=== PATIENT | male | born 1970 | race African-American/Black ===

== ENCOUNTER 2017-12-22 07:43 | Emergency (ER) | payer OTHER ==
[~2017-12-22] VITALS: Ht 177.8 cm; Wt 121.1 kg
[~2017-12-22 07:43] MED LIST: ALDACTONE25 MG PO; AMOXICILLIN875 MG PO; GABAPENTIN 100100 MG PO; GLIPIZIDE 10 MG10 MG PO; LASIX 20 MG TAB20 MG PO; PRINIVIL20 MG
[2017-12-22] MEDS ORDERED: COREG25 MG PO (08:05)
[2017-12-22] MEDS ORDERED: HYDRALAZINE 2525 MG PO (08:05)
[2017-12-22] MEDS ORDERED: NORVASC10 MG PO (08:06)
[2017-12-22] MEDS ORDERED: KEFLEX500 M1 PO (08:36)
[2017-12-22 09:11] VITALS: BP 146/86
== END 2017-12-22 09:12 | disposition home or self-care (01) ==
LOC: ER 07:43
DX: E11.621 Type 2 diabetes mellitus with foot ulcer (principal)

== ENCOUNTER 2018-04-12 08:35 | Inpatient (IN) | payer OTHER ==
[~2018-04-12] VITALS: Ht 177.8 cm; Wt 118.0 kg
[2018-04-12] VITALS (30 sets, daily range): BP systolic 146–223; BP diastolic 69–119
--- NOTE | ~2018-04-12 | HC ---
[facility] [place] [address] [place] [address] CONSULTATION Name: MATTHEW NELSON Room #: 240-P [facility] IN M.R.#: [id number] Admission: 04/12/18 Attend Phys: Dante Wallace Discharge: Date of : 66 Report #: [id number] THIS REPORT FOR: //name// CC: Zunilda ODOM Physician staff REASON FOR CONSULTATION: End-stage renal disease. REASON FOR THE PRESENTATION: Swelling and shortness of breath. HISTORY OF PRESENT ILLNESS: A 48-year-old with past medical history of diabetes mellitus, hypertension, unfortunately noncompliance with medical care, uncontrolled diabetes mellitus with hypertension, evidence of diabetic retinopathy, who presented yesterday with shortness of breath. He was found to have pulmonary edema and fluid overload. Blood pressure was extremely elevated. This was 200/107. Laboratory values from yesterday revealed anemia with hyperkalemia, BUN of 108 and a creatinine of 10.2. He was treated accordingly for his hyperkalemia and was admitted to the Intensive Care Unit to be further evaluated. PAST MEDICAL HISTORY: 1. Diabetes mellitus. 2. Hypertension. 3. Noncompliance. 4. Diabetic retinopathy. MEDICATIONS: 1. Aldactone. 2. Glipizide. 3. Hydralazine. 4. Amlodipine. 5. Furosemide. ALLERGIES: ASPIRIN. FAMILY HISTORY: His mom was on dialysis. REVIEW OF SYSTEMS: GENERAL: No fever or chills. CARDIOVASCULAR: Significant for shortness of breath. PULMONARY: No cough or hemoptysis, but significant for dyspnea on exertion. GASTROINTESTINAL: No nausea or vomiting. GENITOURINARY: No frequency, no urgency. No change in bowel habits. MUSCULOSKELETAL: No back pain, no morning stiffness. SKIN: Significant for bilateral lower extremity edema. [facility] [address] [place] [address] CONSULTATION Name: MATTHEW NELSON Room #: 240-P [facility] IN ..#: [id number] Admission: 04/12/18 Attend Phys: Dante Wallace Discharge: Date of : 66 Report #: [id number] PHYSICAL EXAMINATION: VITAL SIGNS: Blood pressure is now 140/76. HEAD AND NECK: No jugular venous distention. CHEST: Decreased air entry bilaterally. CARDIOVASCULAR: No rub detected. Distant S1, S2. ABDOMEN: Soft, nontender. LOWER EXTREMITIES: +4 edema. LABORATORY VALUES: Reviewed. He is anemic with hemoglobin of 7.4. Potassium is 6.1. Phosphorus was 10. LFTs revealed an elevated AST and ALT. Renal ultrasound with no evidence of obstruction. Chest x-ray: Mild pulmonary venous congestion. ASSESSMENT, IMPRESSION AND PLAN: 1. End-stage renal disease. 2. Hypertensive urgency. 3. Noncompliance. 4. Hyperkalemia. 5. The patient's blood pressure seems to be under much better control. 6. Given the above-mentioned laboratory values, we will initiate the patient on hemodialysis. We will ask Radiology to place a dialysis catheter. 7. Anemia workup. 8. Initiate hyperphosphatemia treatment. 9. lock up worker to arrange outpatient hemodialysis. By: [id number] Timur Watters MD /nt
[~2018-04-12 08:35] MED LIST changes: -ALDACTONE25 MG PO; +COREG25 MG PO; -GLIPIZIDE 10 MG10 MG PO; +GLIPIZIDE ER5 MG PO; +HYDRALAZINE 2525 MG PO; +KEFLEX500 M1 PO; +NORVASC10 MG PO; +SPIRONOLACTONE25 M1 PO
[2018-04-12 09:11] LABS: ABSOLUTE NEUTROPHILS 7.7 thou/uL (1.4-8.2); HEMOGLOBIN 8.3 gm/dL (14.0-18.0); WBC 11.2 thou/uL (4.0-11.0)
[2018-04-12 09:12] LABS: BASOPHILS 0.9 % (0.0-2.0); EOSINOPHILS 3.8 % (0.0-3.0); HEMATOCRIT 25.4 % (42.0-52.0); MCH 30.4 pg (26.0-34.0); MCHC 32.5 g/dL (28.0-37.0); MCV 93.6 fL (80.0-100.0); MONOCYTES 11.3 % (1.0-8.0); PLATELET COUNT 213 thou/uL (150-400); RBC 2.72 mil/uL (4.50-6.00); RDW 15.1 % (10.5-14.5)
[2018-04-12 09:13] LABS: URINE CLARITY CLEAR; URINE COLOR YELLOW; URINE PROTEIN (DIPSTICK) 2+ (Negative); URINE SPECIFIC GRAVITY 1.025 (1.005-1.035)
[2018-04-12 09:14] LABS: URINE BILIRUBIN NEGATIVE (Negative); URINE BLOOD 2+ (Negative); URINE GLUCOSE-RANDOM* NEGATIVE (Negative); URINE KETONES NEGATIVE (Negative); URINE LEUKOCYTES-REFLEX NEGATIVE (Negative); URINE NITRITE-REFLEX NEGATIVE (Negative); URINE UROBILINOGEN 0.2 E.U./dl (0.2-1.0)
[2018-04-12 09:14] LABS: ANION GAP 18 mmol/L (7-16); BUN 109 mg/dL (7-18); CALCIUM 6.7 mg/dL (8.5-10.1); CHLORIDE 108 mmol/L (98-107); CO2 14 mmol/L (21-32); CREATININE 10.1 mg/dL (0.7-1.3); GLUCOSE 80 mg/dL (74-106); SODIUM 140 mmol/L (136-145)
[2018-04-12 09:19] LABS: POTASSIUM 6.6 mmol/L (3.5-5.1)
[2018-04-12 09:22] LABS: SGOT 144 U/L (15-37); SGPT 133 U/L (30-65); TOTAL BILIRUBIN 0.6 mg/dL (<0.1-1.0); TOTAL PROTEIN 8.6 g/dL (6.4-8.2); TROPONIN-I <0.06 ng/mL (<0.06)
[2018-04-12 09:37] LABS: BACTERIA-REFLEX 1-9 Few /HPF (None Seen); CASTS None Seen /LPF (None Seen); CRYSTALS None Seen /LPF (None Seen); SQUAMOUS None Seen /LPF (0-3); URINE RBC None Seen /HPF (0-2); URINE WBC-REFLEX 0-5 Rare /HPF (0-5)
[2018-04-12 10:06] LABS: PROT/CREAT RATIO 3.9; URINE CREATININE-RANDOM* 63.4 mg/dL; URINE PROTEIN-RANDOM* > 250.0 mg/dL (<11.9)
[2018-04-12 10:54] LABS: CHOLESTEROL 101 mg/dL (<200); HDL CHOLESTEROL 39 mg/dL (>40); LDL CHOLESTEROL 47 mg/dL (<100); TC:HDL 2.6 Ratio (Not establshd); TRIGLYCERIDE 75 mg/dL (<150); VLDL 15 mg/dL (<40)
--- NOTE | 2018-04-12 12:03 | 2DMMODE ---
[facility] [place] [address] 2 D/M-MODE ECHOCARDIOGRAM Name: OMARMATTHEW JONAS Room #: 170-4 ADM IN M.R.#: [id number] Admission: 04/12/18 Attend Phys: Dante Isaac Discharge: Date of : 66 Date of Service: 04/12/18 1203 Report #: [id number] THIS REPORT FOR: //name// APPROVED REPORT Study performed: 04/12/2018 10:50:47 EXAM: Comprehensive 2D, Doppler, and color-flow Echocardiogram Patient Location: Echo lab Room #: ER Status: routine BSA: 2.39 HR: 59 bpm BP: 210/115 mmHg Rhythm: NSR Other Information Study Quality: Adequate Technically limited study due to body habitus. Indications Short of breath, CHF. Hx: CHF, HTN, DM. Echo Enhancing Agent Indication: Endocardial border delineation Agent(s) / Amount(s) Used: Optison 4 cc 2D Dimensions RVDd: 52.99 mm IVSd: 15.00 (7-11mm) LVOT Diam: 23.46 (18-24mm) LVDd: 59.22 mm PWd: 15.00 (7-11mm) Ascending Ao: 34.26 (22-36mm) LVDs: 43.78 (25-40mm) Aortic Root: 36.82 mm Volumes Left Atrial Volume (Systole) Single Plane 4CH: 91.86 mL Single Plane 2CH: 122.00 mL LA ESV Index: 47.00 mL/m2 Aortic Valve AoV Peak Ryley.: 1.71 m/s AO Peak Gr.: 11.70 mmHg LVOT Max P.54 mmHg LVOT Max V: 1.07 m/s TANISHA Vmax: 2.69 cm2 [facility] [place] [address] 2 D/M-MODE ECHOCARDIOGRAM Name: MATTHEW NELSON Room #: [address] [place] [address] IN M.R.#: [id number] Admission: 04/12/18 Attend Phys: Dante Isaac Discharge: Date of : 66 Date of Service: 04/12/18 1203 Report #: [id number] Mitral Valve E/A Ratio: 1.1 MV Decel. Time: 203.86 ms MV E Max Ryley.: 1.18 m/s MV A Ryley.: 1.03 m/s MV PHT: 59.12 ms IVRT: 92.27 ms Pulmonary Valve PV Peak Ryley.: 1.05 m/s PV Peak Gr.: 4.38 mmHg Pulmonary Vein P Vein S: 0.61 m/s P Vein D: 0.73 m/s P Vein S/D Ratio: 0.84 Tricuspid Valve TR Peak Ryley.: 3.15 m/s RAP Estimate: 10.00 mmHg TR Peak Gr.: 39.81 mmHg PA Pressure: 50.00 mmHg Left Ventricle Left ventricle is mildly dilated. Moderate concentric left ventricular hypertrophy. Left ventricular systolic function is normal. LVEF is 50-55%. Right Ventricle Right ventricle is dilated. Poor visualized. Difficult to assess function. Atria Left atrium is moderately dilated. Right atrium is moderately dilated. Aortic Valve Aortic valve is mildly thickened and calcified. with a focal density noted, clinical correlation suggested No aortic regurgitation is present. There is no aortic valvular stenosis. Mitral Valve The mitral valve is normal in structure. Trace mitral regurgitation. No evidence of mitral valve stenosis. Tricuspid Valve The tricuspid valve is normal in structure. Mild to moderate [facility] [address] [place] [address] 2 D/M-MODE ECHOCARDIOGRAM Name: MATTHEW NELSON Room #: 170-4 ADM IN M.R.#: [id number] Admission: 04/12/18 Attend Phys: Dante Isaac Discharge: Date of : 66 Date of Service: 04/12/18 1203 Report #: [id number] tricuspid regurgitation. Estimated PAP is 45-50mmHg. Pulmonic Valve The pulmonary valve is normal in structure. Mild pulmonic regurgitation. Great Vessels The aortic root is normal in size. The ascending aorta is normal in size. IVC is dilated and collapses <50% with inspiration. Pericardium There is no pericardial effusion. <Conclusion> Left ventricle is mildly dilated. LVEF is 50-55%. Right ventricle is dilated. Poor visualized. Difficult to assess function. Aortic valve is mildly thickened and calcified. with a focal density noted, clinical correlation suggested The mitral valve is normal in structure. Trace mitral regurgitation. The pulmonary valve is normal in structure. Mild pulmonic regurgitation. There is no pericardial effusion. <ELECTRONICALLY SIGNED> By: Santhosh Oconnor MD 04/12/18 1203 1203 02 Santhosh Oconnor MD /INF
[2018-04-12] MEDS ORDERED: RENO CAPS SOFTGE1 MG PO (13:06)
[2018-04-12] MEDS ORDERED: NAPROSYN500 MG PO (13:07)
--- NOTE | 2018-04-12 15:45 | EKG ---
[address] [employer] [place] [address] ELECTROCARDIOGRAM REPORT Name: MATTHEW NELSON Room #: 240-P ADM IN M.R.#: [id number] Admission: 04/12/18 Attend Phys: Dante Wallace Discharge: Date of : 66 Report #: [id number] THIS REPORT FOR: //name// [facility] ED Test Date: 2018-04-12 Test Time: 08:51:18 Pat Name: MATTHEW NELSON Department: Room: 240 Gender: M Measurement And Sensing Technician: : 1970 Requested By: Sami Reid Order Number: [id number] MD: Troy Solomon Measurements Intervals [place] Rate: 66 P: 52 MA: 181 QRS: 29 QRSD: 99 T: 92 QT: 479 QTc: 502 Interpretive Statements Sinus rhythm Low voltage, extremity leads Consider anterior infarct Nonspecific T abnormalities, lateral leads No previous ECG available for comparison Electronically Signed On 04-12-2018 15:45:08 UTILIZATION SUPERVISOR by Troy Solomon [email or web address] <ELECTRONICALLY SIGNED> By: Troy Solomon MD 04/12/18 1545 D: 01/850 0 Troy Solomon MD /KARINA
[2018-04-12 16:19] LABS: CALCIUM 6.9 mg/dL (8.5-10.1); CREATININE 10.1 mg/dL (0.7-1.3)
[2018-04-12 16:21] LABS: POTASSIUM 6.2 mmol/L (3.5-5.1)
--- NOTE | 2018-04-12 20:22 | NUR ---
PATIENT ADMITTED TO THE ICU. HE WAS ALERT AND ORIENTED. HE DENIED PAIN. TREATMENT WAS RECEIVED IN THE ED FOR HYPERKALEMIA. LABS WERE REDRAWN AND DR. AVILES CALLED TO [facility]. THIS WAS PROVIDED. ASSESSMENTS AND VITAL SIGNS DOCUMENTED. PLAN OF CARE IS TO CONTINUE TO MONITOR PATIENT STATUS, VITAL SIGNS, AND LABS. HE HAS HAD URINE OUTPUT DOCUMENTED. REPORT GIVEN TO FIREARMS EXPERT RN FOR CONTINUATION OF CARE.
[2018-04-12 22:09] LABS: GLYCOHEMOGLOBIN (HGB A1C) 5.6 % (4.8-5.6)
[2018-04-12 23:10] LABS: HAV IgM AB (ANTI-HAV IgM) Negative (Negative); HEPATITIS B SURFACE AG Negative (Negative); HEPATITIS C VIRUS AB 0.1 (0.0-0.9)
[2018-04-13] VITALS (23 sets, daily range): BP systolic 125–175; BP diastolic 65–93
[2018-04-13 04:55] LABS: HEMATOCRIT 23.1 % (42.0-52.0); HEMOGLOBIN 7.4 gm/dL (14.0-18.0); MCH 29.7 pg (26.0-34.0); MCHC 32.1 g/dL (28.0-37.0); MCV 92.7 fL (80.0-100.0); RBC 2.49 mil/uL (4.50-6.00); RDW 15.8 % (10.5-14.5)
[2018-04-13 05:00] LABS: INR 1.2; PROTIME 12.8 Seconds (9.3-11.4)
[2018-04-13 05:16] LABS: ALBUMIN 2.5 g/dL (3.4-5.0); CALCIUM 6.1 mg/dL (8.5-10.1); CREATININE 10.2 mg/dL (0.7-1.3); MAGNESIUM 1.9 mg/dL (1.8-2.4); TOTAL BILIRUBIN 0.6 mg/dL (<0.1-1.0); TOTAL PROTEIN 7.5 g/dL (6.4-8.2)
[2018-04-13 05:20] LABS: POTASSIUM 6.1 mmol/L (3.5-5.1)
[2018-04-13 09:32] LABS: % SATURATION 28 % (20-39); IRON 55 ug/dL (65-175); TIBC 193 ug/dL (250-450)
--- NOTE | 2018-04-13 10:35 | NUR ---
Verbal order received from physician that pt will need diet education and reinforcement. Admitted to ICU with renal failure, HTN, hyperkalemia and hyperphosph. Will be starting dialysis. Currently no diet order. Will wait until pt stabilizes and transfers out of ICU, then begin nutrition education on renal diet.
--- NOTE | 2018-04-13 14:42 | NUR ---
Met with patient he admits with renal failure and hyperkalemia. 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 He is currently living with x-girlfriend. He works "on and off." Currently not working. He will need jail community dialysis, barrier no health insurance. [facility] has referral. Patient is familiar with dialysis as his mother was on service with dialysis. Sp with Shawna at [facility] and faxed information for review. Patient in agreement.
--- NOTE | 2018-04-13 17:34 | NUR ---
END OF SHIFT REPORT: PATIENT ALERT AND ORIENTED X4, NO COMPLAINTS OF PAIN, SINUS RHYTHM ON SWITCH CLEANER. ON ROOM AIR, 2L WHEN SLEEPING. RIGHT DIALYSIS TUNNELED CATHETER INTACT. PATIENT UPDATED ON THE PLAN OF CARE AND VERBALIZES UNDERSTANDING. DIALYSIS PLANNED FOR THIS EVENING. NO SIGNS OF ACUTE DISTRESS NOTED AT THIS TIME. WILL CONTINUE TO MONITOR.
--- NOTE | 2018-04-14 01:30 | NUR ---
PT WAS TRANSFERED TO ROOM 455 AFTER DIALYSIS, PT TOLERATED DIALYSIS WELL, WITH NO EVENTS, BP TRENDING UP AFTER DIALYSIS , SCHEDULED MED GIVEN, REPORT CALLED TO FLOOR NURSE PRIOR TRANSFER. ALL BELONGINGS SENT UP WITH PT.
[2018-04-14 02:29] VITALS: BP 181/82
--- NOTE | 2018-04-14 05:21 | NUR ---
2315 - PT ARRIVED TO UNIT, ORIENTED TO ROOM, CALL LIGHT AND BED CONTROLS. BED ALARM TURNED ON. FULL ASSESSMENT COMPLETED. 0523 - PT SLEPT WELL OVER NIGHT WITH NO COMPLAINTS. BLOOD SUGARS AND VITAL SIGNS REMAINED WITHIN NORMAL LIMITS
[2018-04-14 05:32] LABS: HEMATOCRIT 24.6 % (42.0-52.0); HEMOGLOBIN 8.1 gm/dL (14.0-18.0); MCH 30.1 pg (26.0-34.0); MCHC 32.9 g/dL (28.0-37.0); MCV 91.5 fL (80.0-100.0); RBC 2.69 mil/uL (4.50-6.00); RDW 15.1 % (10.5-14.5); WBC 10.1 thou/uL (4.0-11.0)
[2018-04-14 05:50] LABS: ALBUMIN 2.6 g/dL (3.4-5.0); CALCIUM 6.4 mg/dL (8.5-10.1); POTASSIUM 4.6 mmol/L (3.5-5.1)
[2018-04-14 05:51] LABS: CREATININE 7.4 mg/dL (0.7-1.3)
[2018-04-14 07:18] VITALS: BP 127/81
[2018-04-14 15:30] VITALS: BP 163/78
--- NOTE | 2018-04-14 18:34 | NUR ---
ASSUMED CARE AT 0700. AXOX4. DIALYSIS TODAY. TEMPORARY PORT ON R CHEST. ON D10W FOR HYPOGLYCEMIA. SEEN BY AT BEDSIDE. NNO TODAY. NO S/S ACUTE DISTRESS NOTED OR REPORTED AT THIS TIME.
[2018-04-14 19:07] VITALS: BP 154/77
[2018-04-15 01:53] VITALS: BP 159/87
--- NOTE | 2018-04-15 01:59 | NUR ---
ASSUMED PT CARE 1900. PT ALERT AND ORIENTED X4. VSS. BLOOD SUGARS STABLE. IV DRESSING C/D/I, NO SIGNS OF INFILTRATION. SWELLING TO R HAND AND FOREARM, PT REPORTS MILD PAIN, RATING AT FOUR. MEDICATION PROVIDED, SEE EMAR. PT ON 2L OXYGEN VIA NC, DENIES SHORTNESS OF BREATH. BILAT LOWER EXTREMITY SWELLING, 2/2 PULSES. ICE APPLIED TO SWOLLEN UPPER EXTREMITY. CONTINUING TO MONITOR. WILL CONTINUE POC UNTIL EOS.
[2018-04-15 06:08] LABS: ALBUMIN 2.7 g/dL (3.4-5.0); CALCIUM 6.6 mg/dL (8.5-10.1); CREATININE 6.5 mg/dL (0.7-1.3); PHOSPHORUS 5.8 mg/dL (2.5-4.9); POTASSIUM 5.1 mmol/L (3.5-5.1)
[2018-04-15 08:55] VITALS: BP 173/84
[2018-04-15 08:58] VITALS: BP 181/95
--- NOTE | 2018-04-15 09:29 | NUR ---
ASSUMED CARE AT 0700. AXOX4. EVALUATED BY AT BEDSIDE. RUE SWELLING ADRRESSED. ELEVATED BP EVALUATED. BP NO INTERVENTION NEEDED. RUE WILL DRAW URIC ACID AND USE PHARMACOLOGICAL INTERVENTION PER . ALSO SEEN BY . HEMODIALYSIS TODAY. NO S/S ACUTE DISTRESS NOTED OR REPORTED AT THIS TIME. WILL CONT TO MONITOR FOR ANY CHANGES IN CONDITION.
[2018-04-15 17:09] VITALS: BP 126/90
[2018-04-15 20:15] VITALS: BP 148/79
[2018-04-16 05:40] VITALS: BP 166/94
--- NOTE | 2018-04-16 07:27 | NUR ---
C/O SEVERE PAIN IN RIGHT ARM. IV PRN MORPHINE SOMEWHAT EFFECTIVE FOR PAIN, ABLE TO SLEEP. SITS ON SIDE OF BED TO URINATE. RIGHT CHEST DIALYSIS CATH DRESSING INTACT.
[2018-04-16 07:38] VITALS: BP 177/95
[2018-04-16 13:49] VITALS: BP 163/77
[2018-04-16 19:22] VITALS: BP 161/81
[2018-04-17 05:05] VITALS: BP 164/75
[2018-04-17] MEDS ORDERED: TRANDATE 200 M200 M1 PO (10:08)
[2018-04-17] MEDS ORDERED: AMLODIPINE BESYL5 M1 PO (10:08)
[2018-04-17] MEDS ORDERED: RENVELA800 MG PO (10:10)
--- NOTE | 2018-04-17 13:02 | NUR ---
PT HAS BEEN ACCEPTED FOR OUTPATIENT HEMO DIALYSIS AT [facility]. HE HAS CHOSEN , , TUESDAY 11:15 CHAIR TIME. PT INDICATED HE CAN'T GET INTO THE HOUSE HE STAYS WITH A HIS EX GIRLFRIEND IS OUT OF TOWN. CM TO FOLLOW INDICATED WITH DC PLANNING.
[2018-04-17 15:00] VITALS: BP 153/80
--- NOTE | 2018-04-17 17:20 | NUR ---
ASSUMED PT CARE AROUND NOON. PT WAS IN DIALYSIS ALL MORNING. RECEIVED AN ORDER TO D/C PT HOME PER OUTPATIENT DIALYSIS WAS ALL SET UP. PER PT, HE HAS NO WHERE TO GO BACK. SW TRIED TO FIND HIM A PLACE TO GO, UNABLE TO SECURE SAFE DISCHARGE AT THIS TIME. PER PT, HE WILL HAVE PLACE TO GO TOMORROW MORNING. REPORTED TO . C/O R ARM PAIN. TX WITH MORPHINE. VENOFER FINISHED OF TODAY. NO S/S ACUTE DISTRESS NOTED OR REPORTED AT THIS TIME. WILL CONT TO MONITOR FOR ANY CHANGES.
--- NOTE | 2018-04-18 01:56 | NUR ---
Pt transferred to SICU @2014,oriented to room and sorroundings.Pt is A/OX4,up with AX1/RW. C/o pain to bilateral arms,medicated with Morphine IV with partial relief reported.Has BUE superficial thrombosis,on Heparin and Dr carrasquillo. Has a right chest tessio and a PIV on LFA.Encouraged to keep arms elevated d/t swelling.Voiding in the urinal,reports a Med BM at this time. Pt also educated on complying with renal diet/fluid restriction verbalizes understanding but will call back and ask for more pop/ice.Does have YUN,O2 on @ 2L/NC,refused to wear CPAP per RT.Resting quietly at this time with no distress noted. Call light/personal items within reach.
[2018-04-18 08:00] VITALS: BP 148/83
[2018-04-18 09:40] VITALS: BP 148/83
--- NOTE | 2018-04-18 09:51 | NUR ---
DISCHARGE NOTE: VINICIO reviewed chart and spoke with nursing and attending physician. Pt was transferred to [facility] from and is medically stable for discharge home after dialysis. Pt is currently off the unit having dialysis. VINICIO spoke with Shawna at [facility] to notify of pt's discharge. Pt will start outpatient dialysis on , 04/20 at 1115. Pt will need to arriave at [facility] at 1100 and bring his photo ID, medication bottles and a blanket. VINICIO faxed discharge orders/summary to Shawna at [facility]. Shawna requests a copy of pt's dialysis flow sheets and letter from [employer] stating pt has applied and is a good candidate for Medicaid. These documents will be faxed at a later time. VINICIO placed contact info and instructions for pt's first dialysis in discharge summary. Pt's family will provide transportation home. VINICIO is following to finalize discharge.
--- NOTE | 2018-04-18 10:30 | NUR ---
Followup for nutrition education needs. New to dialysis, sleeping on dialysis at time of visit. Possible discharge today. Left education materials with dialysis nurse to give to pt. Pt will be receiving initial diet education and ongoing with renal dietitian at dialysis clinic.
--- NOTE | 2018-04-18 11:48 | NUR ---
PATIENT CARE WAS ASSUMED AT 0715.PATIENT IS ALERT AND ORIENTED X4.PATIENT IS ABLETO AMBULATE WITH WALKER WITH X1 ASSIST.PT WILL HAVE DIALYSIS TODAY ON .MEDS WERE HELD DUE TO PATIENT GETTING DIALYSIS FOR NOW.IV IS INTACT, AND SALINE LOCKED.RIGHT CHEST TESSO DRESSING IS INTACT.PATIENT HAS PAIN 5/10.MEDS WERE GIVEN THIS MORNING BY NIGHT NURSE.WILL CONTINUE TO MONITOR PATIENT.CALL LIGHT, PHONE, AND PERSONAL BELONGINGS ARE WITHIN REACH.
[2018-04-18 14:21] VITALS: BP 148/83
--- NOTE | 2018-04-18 15:23 | NUR ---
DP FAXED FLOW SHEETS TO DAIJA SPENCER FOR PATIENT.
--- NOTE | 2018-04-18 18:08 | NUR ---
PATIENT WAS DISCAHRGED TO GO HOME WITH HOME HEALTH.D/C PAPERWORK WAS GIVEN TO PATIENT.PATIENT HAS NO QUESTION AT THIS TIME. IV WAS TAKEN OUT.PATIENT HAS TESSO FOR DIALYSIS INTACT IN CHEST, CHANGED AND FULLY COVERED, BY DIALYSIS.PT WAS TAKEN OUT VIA W/C TO FRIEND'S CAR BY DELIVERY PERSON.
== END 2018-04-18 18:15 | disposition home health service (06) | DRG 286 ==
LOC: ER 08:35 → ICU 09:56 → 4W 09:56 → EROBS 09:56 → ICU 14:15 → 4W 04-13 23:00 → SICU 04-17 20:59 → ENTRNSPT 04-18 11:05 → EDTRNSPTSTS 04-18 11:09 → EDTRNSPT 04-18 17:46 → EDTRNSPTTYP 04-18 17:46 → SICU 04-18 18:15
PROVIDERS: Emergency Medicine; Hospitalist; ADMIT Hospitalist
PROC: 5A1D70Z Performance of Urinary Filtration, Intermittent, Less than 6 Hours Per Day (ICD-10-PCS; principal; 2018-04-13)
PROC: 02H633Z Insertion of Infusion Device into Right Atrium, Percutaneous Approach (ICD-10-PCS; principal; 2018-04-13)
PROC: B214YZZ Fluoroscopy of Right Heart using Other Contrast (ICD-10-PCS; principal; 2018-04-13)
PROC: 0JH63XZ Insertion of Tunneled Vascular Access Device into Chest Subcutaneous Tissue and Fascia, Percutaneous Approach (ICD-10-PCS; principal; 2018-04-13)
PROC: B244ZZZ Ultrasonography of Right Heart (ICD-10-PCS; principal; 2018-04-13)
PROC: 5A1D70Z Performance of Urinary Filtration, Intermittent, Less than 6 Hours Per Day (ICD-10-PCS; 2018-04-14)
PROC: 5A1D70Z Performance of Urinary Filtration, Intermittent, Less than 6 Hours Per Day (ICD-10-PCS; 2018-04-15)
PROC: 5A1D70Z Performance of Urinary Filtration, Intermittent, Less than 6 Hours Per Day (ICD-10-PCS; 2018-04-17)
PROC: 5A1D70Z Performance of Urinary Filtration, Intermittent, Less than 6 Hours Per Day (ICD-10-PCS; 2018-04-18)
DX: I13.2 Hypertensive heart and chronic kidney disease with heart failure and with stage 5 chronic kidney disease, or end stage renal disease (principal); N18.6 End stage renal disease; I82.613 Acute embolism and thrombosis of superficial veins of upper extremity, bilateral; I50.9 Heart failure, unspecified; E11.22 Type 2 diabetes mellitus with diabetic chronic kidney disease; E11.319 Type 2 diabetes mellitus with unspecified diabetic retinopathy without macular edema; I16.0 Hypertensive urgency; E83.39 Other disorders of phosphorus metabolism; D64.9 Anemia, unspecified; M10.9 Gout, unspecified; I80.8 Phlebitis and thrombophlebitis of other sites; E87.5 Hyperkalemia; E11.65 Type 2 diabetes mellitus with hyperglycemia; E66.9 Obesity, unspecified; Z68.37 Body mass index [BMI] 37.0-37.9, adult; Z91.14 Patient's other noncompliance with medication regimen; Z79.899 Other long term (current) drug therapy; Z88.6 Allergy status to analgesic agent
CPT/HCPCS: 10045; 10078; 15002; 32100

== ENCOUNTER 2019-05-08 09:04 | Inpatient (IN) | payer OTHER ==
[2019-05-08] VITALS (37 sets, daily range): BP systolic 129–227; BP diastolic 78–116
[~2019-05-08] VITALS: Ht 177.8 cm; Wt 113.9 kg
[~2019-05-08 09:04] MED LIST changes: +AMLODIPINE BESY10 MG PO; +AMLODIPINE BESYL5 M1 PO; +CARVEDILOL25 MG PO; +GLIPIZIDE ER2.5 MG PO; +LASIX 80 MG TAB80 MG PO; +NAPROSYN500 MG PO; +RENAL VITAMIN0.8 MG PO; +RENO CAPS SOFTGE1 MG PO; +RENVELA800 MG PO; +TRANDATE 200 M200 M1 PO; +VELPHORO500 MG PO; +ZOCOR20 MG PO
[2019-05-08 09:55] LABS: ABSOLUTE NEUTROPHILS 6.7 thou/uL (1.4-8.2); BASOPHILS 1.2 % (0.0-2.0); EOSINOPHILS 3.8 % (0.0-3.0); HEMATOCRIT 33.1 % (42.0-52.0); HEMOGLOBIN 10.7 gm/dL (14.0-18.0); MCH 30.1 pg (26.0-34.0); MCHC 32.2 g/dL (28.0-37.0); MCV 93.4 fL (80.0-100.0); MONOCYTES 11.3 % (1.0-8.0); PLATELET COUNT 149 thou/uL (150-400); POLYS 67.7 % (36.0-66.0); RBC 3.55 mil/uL (4.50-6.00); RDW 15.6 % (10.5-14.5); WBC 9.8 thou/uL (4.0-11.0)
[2019-05-08 10:10] LABS: ANION GAP 14 mmol/L (7-16); BUN 86 mg/dL (7-18); CALCIUM 8.3 mg/dL (8.5-10.1); CHLORIDE 103 mmol/L (98-107); CO2 18 mmol/L (21-32); CREATININE 12.5 mg/dL (0.7-1.3); GLUCOSE 109 mg/dL (74-106); MAGNESIUM 2.2 mg/dL (1.8-2.4); PHOSPHORUS 7.9 mg/dL (2.5-4.9); TROPONIN-I <0.06 ng/mL (<0.06)
[2019-05-08 10:13] LABS: POTASSIUM 8.1 mmol/L (3.5-5.1); SODIUM 135 mmol/L (136-145)
--- NOTE | 2019-05-08 20:39 | NUR ---
PT ADMITTED TO ICU AND DIALYZED IMMEDIATELY. PULLED OFF 3.7 LITERS. PT IS HYPERTENSIVE. DR CORONEL WOULD LIKE LABS DRAWN IN THE AM. PLAN IS TO DIALYZE PT TOMORROW AM. PT AWAKE AND ORIENTATED. WILL CONTINUE TO MONITOR.
[2019-05-08 21:55] LABS: CALCIUM 7.5 mg/dL (8.5-10.1); CREATININE 8.4 mg/dL (0.7-1.3); POTASSIUM 4.7 mmol/L (3.5-5.1)
--- NOTE | 2019-05-09 01:31 | NUR ---
PATIENT ALERT AND ORIENTED X4, NO COMPLAINTS OF PAIN. ON 3L NASAL CANNULA, PATIENT WEARS HOME CPAP. UP WITH STANDBY ASSISTANCE. LABWORK REDRAWN, POTASSIUM STABALIZED. DR. NJ NOTIFIED. REPORT GIVEN TO ONCOMING RN. NO SIGN OF ACUTE DISTRESS NOTED AT THIS TIME. PATIENT TRANSFERRED TO CCU.
[2019-05-09 04:01] VITALS: BP 137/72
--- NOTE | 2019-05-09 04:54 | NUR ---
PATIENTS CARES WERE ASUMED AT APPROX MIDNIGHT. PATIENT WAS A TRANSFER FROM ICU. PATIENT WAS ASSESSED. PATIENT WAS MADE COMFORTABLE IN HIS ROOM. TEMP, BLANKET AND URINAL. HOURLY ROUNDS WERE DONE. THE BED IS IN A LOW AND LOCKED POSITION. PALAN TO HAVE DIALYSIS TODAY THEN BE D/C HOME. PATIENT IS INDEPENDENT AND LIKES TO CARE FOR HIM SELF.
[2019-05-09 07:30] VITALS: BP 139/84
[2019-05-09 12:00] VITALS: BP 128/75
--- NOTE | 2019-05-09 12:34 | EKG ---
[facility] [place] [address] ELECTROCARDIOGRAM REPORT Name: MATTHEW NELSON Room #: 200-I ADM IN M.R.#: [id number] Admission: 05/08/19 Attend Phys: Marlen Gentile MD Discharge: Date of : 66 Report #: [id number] THIS REPORT FOR: cc: Hermelindo Diaz MD, Rene P. MD Lundgren,Raul Valdez MD [facility] ~ THIS REPORT FOR: //name// [facility] ED Test Date: 2019-05-08 Test Time: 10:10:36 Pat Name: MATTHEW NELSON Department: Room: 243 Gender: M Livestock Farmers: BARRON : 1970 Requested By: Bernadine Mcarthur Order Number: [id number] MD: Raul Cuello Measurements Intervals [place] Rate: 73 P: 34 KS: 232 QRS: -8 QRSD: 105 T: 114 QT: 410 QTc: 452 Interpretive Statements Sinus rhythm Prolonged KS interval Anterior infarct, old Nonspecific T abnormalities, lateral leads Compared to ECG 04/12/2018 08:51:18 First degree AV block now present T-wave abnormality still present Electronically Signed On 05-08-2019 17:30:53 BUSINESS DEVELOPMENT CONSULTANT by Raul Cuello [email or web address] <ELECTRONICALLY SIGNED> By: Raul Cuello MD, FAC 05/08/19 1730 1010 1010 Raul Cuello MD, [facility] /EPI
[2019-05-09 14:34] VITALS: BP 128/75
[2019-05-09 14:40] VITALS: BP 128/75
--- NOTE | 2019-05-09 14:57 | NUR ---
PT DISCHARGING TO HOME WITH SELF CARE. PT HAS DIALYSIS AT [facility] FAXED DC ORDERS/SUMMARY AND RECEIVED CONFIRMATION.
[2019-05-09 15:25] VITALS: BP 128/75
--- NOTE | 2019-05-09 16:26 | NUR ---
PT CARE ASSUMED AT APPROXIMATELY 0700. PT ASSESSMENTS CHARTED. MEDICATION GIVEN CHARTED. PT RECEIVED DIALYSIS WITHOUT ISSUE. PT TO BE DISCHARGED POST DIALYSIS PER DR'S ORDER. PT TELE AND IV REMOVED PRIOR TO DISCHARGE.
--- NOTE | 2019-05-11 08:13 | HC ---
[facility] [place] [address] CONSULTATION Name: MATTHEW NELSON Room #: 200-I [facility] IN M.R.#: [id number] Admission: 05/08/19 Attend Phys: Marlen Gentile MD Discharge: 05/09/19 Date of : 66 Report #: [id number] THIS REPORT FOR: cc: Hermelindo Diaz MD, Rene P. MD Al-Absi, Ahmed I. MD ~ CC: Zunilda Diaz DATE OF SERVICE: 05/08/2019 The patient was seen and examined in the ICU on 05/08/2019. REASON FOR CONSULTATION: End-stage renal disease. REASON FOR PRESENTATION: Weakness, missed dialysis. HISTORY OF PRESENT ILLNESS: This is a 49-year-old with history of diabetes mellitus, hypertension, end-stage renal disease, maintained on hemodialysis every Tuesday, Tuesday and Tuesday. He missed 2 of his dialysis treatment and presented with weakness and was found to have significantly elevated potassium. The patient was admitted to the ICU where I evaluated him and he will receive emergent dialysis. MEDICATIONS: 1. Carvedilol. 2. Glipizide. 3. Amlodipine. 4. Furosemide. PAST MEDICAL HISTORY: 1. Hypertension. 2. Diabetes mellitus. 3. End-stage renal disease, maintained on hemodialysis. 4. Obstructive sleep apnea. 5. Left AV fistula, nonfunctioning. 6. Right IJ tunneled catheter. ALLERGIES: None. FAMILY HISTORY: Strong family history of diabetes mellitus and hypertension. REVIEW OF SYSTEMS: GENERAL: Significant for weakness. CARDIOVASCULAR: No chest pain or palpitation. [facility] [address] [place] [address] CONSULTATION Name: MATTHEW NELSON Room #: 200-I [facility] IN .R.#: [id number] Admission: 05/08/19 Attend Phys: Marlen Gentile MD Discharge: 05/09/19 Date of : 66 Report #: [id number] PULMONARY: Significant for shortness of breath. GASTROINTESTINAL: No nausea or vomiting. MUSCULOSKELETAL: Occasional myalgias. PHYSICAL EXAMINATION: GENERAL: The patient was alert, oriented, in no apparent distress. VITAL SIGNS: Blood pressure was 128/75. Temperature 36.8, pulse is 65. HEAD AND NECK: No jugular venous distention. Right IJ tunneled catheter. CHEST: No crackles. CARDIOVASCULAR: No rub detected. ABDOMEN: Soft, nontender. EXTREMITIES: Lower extremities, no edema. LABORATORY DATA: Laboratory values from yesterday reviewed. Potassium was 8.1. BUN was 86, creatinine was 12.5. IMPRESSION AND PLAN: 1. End-stage renal disease. 2. Hyperkalemia. 3. Noncompliance with dialysis. 4. Acute emergent dialysis was done yesterday and the patient had received another dialysis session today. Okay to be discharged after hemodialysis. <ELECTRONICALLY SIGNED> By: Zunilda Saldivar MD 05/11/19 0813 1748 2256 Zunilda Saldivar MD /deana
== END 2019-05-09 16:15 | disposition home or self-care (01) | DRG 640 ==
LOC: ER 09:04 → ICU 11:47 → EROBS 11:47 → ICU 12:08 → 2N 12:08 → ICU 12:12 → 2N 05-09 01:34
PROVIDERS: Emergency Medicine Emergency Medical Services; ADMIT Hospitalist
PROC: 5A1D70Z Performance of Urinary Filtration, Intermittent, Less than 6 Hours Per Day (ICD-10-PCS; principal; 2019-05-08)
PROC: 5A1D70Z Performance of Urinary Filtration, Intermittent, Less than 6 Hours Per Day (ICD-10-PCS; 2019-05-09)
DX: E87.5 Hyperkalemia (principal); N18.6 End stage renal disease; I13.2 Hypertensive heart and chronic kidney disease with heart failure and with stage 5 chronic kidney disease, or end stage renal disease; I16.1 Hypertensive emergency; I50.9 Heart failure, unspecified; E78.00 Pure hypercholesterolemia, unspecified; E11.22 Type 2 diabetes mellitus with diabetic chronic kidney disease; G47.33 Obstructive sleep apnea (adult) (pediatric); E78.5 Hyperlipidemia, unspecified; E66.9 Obesity, unspecified; D53.9 Nutritional anemia, unspecified; Z68.36 Body mass index [BMI] 36.0-36.9, adult; Z83.3 Family history of diabetes mellitus; Z82.49 Family history of ischemic heart disease and other diseases of the circulatory system; Z91.15 Patient's noncompliance with renal dialysis; Z79.899 Other long term (current) drug therapy; Z99.2 Dependence on renal dialysis
CPT/HCPCS: 10203; 32100

== ENCOUNTER 2019-06-29 10:29 | Emergency (ER) | payer OTHER ==
[~2019-06-29] VITALS: Ht 177.8 cm; Wt 119.3 kg
[2019-06-29 11:18] LABS: HEMATOCRIT 34.6 % (42.0-52.0); HEMOGLOBIN 11.4 gm/dL (14.0-18.0); MCH 30.3 pg (26.0-34.0); MCHC 32.9 g/dL (28.0-37.0); PLATELET COUNT 220 thou/uL (150-400); RBC 3.76 mil/uL (4.50-6.00); WBC 8.7 thou/uL (4.0-11.0)
[2019-06-29 11:28] LABS: ANION GAP 10 mmol/L (7-16); BUN 48 mg/dL (7-18); CALCIUM 7.2 mg/dL (8.5-10.1); CHLORIDE 100 mmol/L (98-107); CO2 26 mmol/L (21-32); CREATININE 7.5 mg/dL (0.7-1.3); GLUCOSE 266 mg/dL (74-106); SODIUM 136 mmol/L (136-145)
[2019-06-29 11:30] LABS: POTASSIUM 5.3 mmol/L (3.5-5.1)
[2019-06-29 11:36] LABS: TROPONIN-I <0.06 ng/mL (<0.06)
[2019-06-29 12:16] VITALS: BP 167/82
[2019-06-29 12:22] LABS: ANISOCYTOSIS 1+
--- NOTE | 2019-07-02 09:08 | EKG ---
[facility] [place] [address] ELECTROCARDIOGRAM REPORT Name: MATTHEW NELSON [facility] [id number] Admission: 06/29/19 Attend Phys: Discharge: 06/29/19 Date of : 66 Report #: [id number] THIS REPORT FOR: cc: Hermelindo Diaz MD, Rene P. MD Lundgren, Craig H. MD [facility] ~ THIS REPORT FOR: //name// [facility] ED Test Date: 2019-06-29 Test Time: 11:12:30 Pat Name: MATTHEW NELSON Department: Room: Gender: M Banquet Coordinator: [facility] : 1970 Requested By: Sami Dotson Order Number: [id number] MD: Raul Cuello Measurements Intervals [place] Rate: 73 P: 2 [place]: 193 QRS: 3 QRSD: 94 T: 137 QT: 462 QTc: 510 Interpretive Statements Sinus rhythm Anterior infarct, old Abnormal T, consider ischemia, lateral leads Prolonged QT interval Baseline wander in lead(s) V1 Compared to ECG 05/08/2019 10:10:36 T wave abnormality is more pronounced Prolonged QT interval now present Electronically Signed On 07-02-2019 9:06:45 CDT by Raul Cuello [email or web address] <ELECTRONICALLY SIGNED> By: Raul Cuello MD, [facility] 07/02/19 0906 1112 111 Raul Cuello MD, [facility] /EPI
== END 2019-06-29 12:17 | disposition home or self-care (01) ==
LOC: ER 10:29
PROVIDERS: Emergency Medicine
DX: R06.00 Dyspnea, unspecified (principal); R68.89 Other general symptoms and signs; E78.00 Pure hypercholesterolemia, unspecified; G47.30 Sleep apnea, unspecified; I13.2 Hypertensive heart and chronic kidney disease with heart failure and with stage 5 chronic kidney disease, or end stage renal disease; E11.22 Type 2 diabetes mellitus with diabetic chronic kidney disease; N18.6 End stage renal disease; I50.9 Heart failure, unspecified; Z99.2 Dependence on renal dialysis

== ENCOUNTER 2019-09-20 03:00 | Emergency (ER) | payer OTHER ==
[~2019-09-20] VITALS: Ht 177.8 cm; Wt 119.3 kg
[2019-09-20] MEDS ORDERED: NEURONTIN 300M300 M2 PO (03:10)
[2019-09-20 05:23] VITALS: BP 142/80
== END 2019-09-20 05:32 | disposition home or self-care (01) ==
LOC: ER 03:00
DX: K56.7 Ileus, unspecified (principal); K59.00 Constipation, unspecified; E78.00 Pure hypercholesterolemia, unspecified; I13.2 Hypertensive heart and chronic kidney disease with heart failure and with stage 5 chronic kidney disease, or end stage renal disease; E11.22 Type 2 diabetes mellitus with diabetic chronic kidney disease; N18.6 End stage renal disease; I50.9 Heart failure, unspecified; Z99.2 Dependence on renal dialysis; Z79.899 Other long term (current) drug therapy

== ENCOUNTER → 2020-02-01 | Outpatient (CLI) | payer OTHER ==
[~2020-02-01] MED LIST changes: +NEURONTIN 300M300 M2 PO
== END ==
LOC: LAB 01-31 09:00
PROVIDERS: ATTEND Pediatrics
DX: Z20.828 Contact with and (suspected) exposure to other viral communicable diseases (principal)

== ENCOUNTER → 2020-02-04 | Outpatient (CLI) | payer OTHER ==
--- NOTE | 2020-02-13 10:47 | SLE ---
[facility] [place] [address] POLYSOMNOGRAPHY STUDY Name: MATTHEW NELSON Room #: REG [facility].#: [id number] Admission: 02/04/20 Attend Phys: Jose A Freitas MD Discharge: Date of : 66 Report #: [id number] THIS REPORT FOR: cc: Hermelindo Diaz MD, Rene P. MD Khan, Aman U. MD ~ CC: Jose A Diaz DATE OF SERVICE: 02/04/2020 SLEEP STUDY REFERRING PHYSICIAN: Dr. Yaron Robles. The patient is a 49-year-old who weighs 272 pounds with a BMI of 39. The patient underwent split night study performed at [facility]. The patient's [place] score of 5. During the night study, the patient spent 439 minutes in bed and slept for 393 minutes with a sleep efficiency of 89.5%. Sleep latency was 1.9 minutes with a REM latency of 218 minutes. Sleep architecture showed normal stage 1 sleep, increased stage 2 sleep, normal slow wave and reduced REM sleep, which was 9.5% of the total sleep time. During the initial diagnostic portion of the study, the patient slept for 122 minutes. During that time, the patient had 166 obstructive apneas, no mixed or central apneas and 69 hypopneas. The patient's AHI was 115 per hour. The patient's supine AHI was 104 per hour and REM sleep was not observed during the diagnostic portion. EKG monitoring revealed an average heart rate of 72 beats per minute. No sustained arrhythmias observed. PLMS were seen at an index of 35 per hour, but none caused EEG arousals. The patient met the criteria for CPAP initiation. It was started at 5 cm water and titrated up to 17 cm water. At the final pressure, the patient slept for 227 minutes. The patient had supine as well as REM sleep. The patient's AHI was reduced to 7 per hour and oxygen saturation remained above 88% with one spot desaturation of 78%. Would recommend 18 cm water as the final CPAP pressure. IMPRESSION: 1. Severe obstructive sleep apnea at an AHI of 115 per hour. 2. Nocturnal hypoxia secondary to obstructive sleep apnea, but resolved with [facility] [address] [place] [address] POLYSOMNOGRAPHY STUDY Name: OMARMATTHEW PRITESH Room #: REG [facility]#: [id number] Admission: 02/04/20 Attend Phys: Jose A Freitas MD Discharge: Date of : 66 Report #: [id number] CPAP. 3. Moderate periodic limb movements without any significant EEG arousals. RECOMMENDATIONS: 1. CPAP at 18 cm water should be used on a nightly basis. 2. Follow up in 4-6 weeks to assess compliance with CPAP and to document clinical improvement. 3. Weight loss is strongly advised. 4. Avoid [employer] depressants. 5. Cautioned regarding driving until symptoms of sleep apnea resolve with the use of CPAP. 6. PLMs does not need to be treated unless the patient has symptoms of restless legs during the day. <ELECTRONICALLY SIGNED> By: Jose A Freitas MD 02/13/20 1047 1237 1248 Jose A Freitas MD /nt
== END ==
LOC: SLEEPLAB 13:22
PROVIDERS: ATTEND Internal Medicine Critical Care Medicine
DX: G47.33 Obstructive sleep apnea (adult) (pediatric) (principal)

== ENCOUNTER → 2020-02-06 | Outpatient (CLI) | payer OTHER ==
[~2020-02-06] VITALS: Ht 177.8 cm; Wt 123.4 kg
[2020-02-06 08:37] LABS: POTASSIUM 6.1 mmol/L (3.5-5.1)
--- NOTE | 2020-02-06 13:36 | EKG ---
[facility] [place] [address] ELECTROCARDIOGRAM REPORT Name: MATTHEW NELSON Room #: [facility].#: [id number] Admission: 02/06/20 Attend Phys: Jacky Guardado Discharge: Date of : 66 Report #: [id number] THIS REPORT FOR: cc: Hermelindo Diaz MD, Rene P. MD Santiago, Patrick MD [facility] ~ THIS REPORT FOR: //name// [facility] Test Date: 2020-02-06 Test Time: 09:17:36 Pat Name: MATTHEW NELSON Department: Room: Gender: M Advocacy Director: : 1970 Requested By: Shital Monroe Order Number: [id number] MD: Randy Matthews Measurements Intervals [place] Rate: 68 P: 27 HI: 217 QRS: 6 QRSD: 88 T: 59 QT: 444 QTc: 473 Interpretive Statements Sinus rhythm Prolonged HI interval Compared to ECG 06/29/2019 11:12:30 First degree AV block now present Myocardial infarct finding no longer present T-wave abnormality no longer present Possible ischemia no longer present Prolonged QT interval no longer present Electronically Signed On 02-06-2020 13:36:38 LEASING CONSULTANT by Randy Matthews [email or web address] <ELECTRONICALLY SIGNED> By: Randy Matthews MD, FACC 02/06/20 1336 6 6 Randy Matthews MD, FAC /EPI
--- NOTE | 2020-02-07 13:28 | P ---
[facility] [place] [address] PROCEDURE REPORT Name: MATTHEW NELSON [id number] Admission: 02/06/20 Attend Phys: Jacky Guardado Discharge: Date of : 66 Report #: [id number] THIS REPORT FOR: cc: Hermelindo Diaz MD, Rene P. MD McElhinney, Christian C. MD ~ CC: Jacky Diaz MD DATE OF SERVICE: 02/06/2020 PROCEDURE PERFORMED: Colonoscopy with biopsies. HISTORY OF PRESENT ILLNESS: The patient is a 49-year-old male who presents today for routine screening colonoscopy. He denies any symptoms. No family history of colon cancer. DESCRIPTION OF PROCEDURE: The risks and benefits of the procedure were explained to the patient, those risks including but not limited to bleeding, perforation and the risk of sedation. He understood these risks and gave informed consent. Sedation was given using propofol per anesthesia. Next, a digital rectal exam was initially performed, which showed small external hemorrhoid, otherwise normal. Next, using a standard Olympus colonoscope, the scope was placed in the patient's anus and advanced under direct vision to the cecum. The overall prep was good in most areas, fair in a few small areas. Multiple washings and aspirations were performed. In the cecum, a 5-mm sessile polyp was noted. This was removed with cold forceps, otherwise normal. The ileocecal valve was normal. The ascending, transverse, descending and sigmoid colon were normal. The rectal mucosa was normal. On retroflexion, no abnormalities were noted. The scope was then withdrawn and the procedure terminated. The patient tolerated the procedure well. IMPRESSION: 1. Cecal polyp. 2. Small external hemorrhoids. 3. Otherwise, normal colonoscopy. RECOMMENDATIONS: 1. Await biopsy results. 2. Repeat colonoscopy in 3 years due to polyp and the prep being fair in some areas. [address] [address] PROCEDURE REPORT Name: MATTHEW NELSON Room #: REG Tom Rosa#: [id number] Admission: 02/06/20 Attend Phys: Jacky Guardado Discharge: Date of : 66 Report #: [id number] Thank you for allowing me to participate in his care. <ELECTRONICALLY SIGNED> By: Jacky Hong MD 02/07/20 1328 1149 0205 Jacky Hong MD /nt
--- NOTE | 2020-02-08 16:06 | PATH ---
[facility] [address] [place] [address] PATHOLOGY RPT PROCEDURE Name: VIRAL NELSON Room #: REG [facility] M.Elba.#: [id number] Admission: 02/06/20 Date of : 66 Discharge: Report #: [id number] Case #: [id number] [facility] Accession Number: [id number] . 01 Material submitted: . cecum - CECAL POLYP . 01 Clinical history: . SCREENING, COLON POLYP . 02 Diagnosis: Polyp, cecal polyp, endoscopic biopsy: - Tubular adenoma. - Negative for high grade dysplasia. (IUV/db; 02/08/2020) LBQ 02/08/2020 1350 Local . 02 Electronically signed: . Sneha Florian MD, Pathologist NPI- [id number] . 01 Gross description: . Received in formalin labeled "Groan, Viral, cecal polyp" are multiple crow-brown soft tissue fragments measuring in aggregate 1.0 x 0.5 x 0.1 cm. The specimen is submitted entirely in A1. [place] [facility] 02/07/2020 1514 Local . 02 Pathologist provided ICD-10: D12.0 . 02 CPT . 970919 Specimen Comment: A courtesy copy of this report has been sent to [phone] Specimen Comment: [phone] Specimen Comment: Report sent to / DR COBOS Performed at: [address] [id number] MD Patrick Mauro MD Phone: [phone] Performed at: [address] [id number] MD Sneha Florian MD Phone: [phone]
== END | disposition home or self-care (01) ==
LOC: GI 07:16
PROVIDERS: Student in an Organized Health Care Education/Training Program; ATTEND Specialist
DX: Z12.11 Encounter for screening for malignant neoplasm of colon (principal); D12.0 Benign neoplasm of cecum; K64.4 Residual hemorrhoidal skin tags; I12.0 Hypertensive chronic kidney disease with stage 5 chronic kidney disease or end stage renal disease; E11.22 Type 2 diabetes mellitus with diabetic chronic kidney disease; N18.6 End stage renal disease; E78.00 Pure hypercholesterolemia, unspecified; G47.30 Sleep apnea, unspecified; Z98.890 Other specified postprocedural states; Z79.899 Other long term (current) drug therapy; Z99.2 Dependence on renal dialysis
CPT/HCPCS: 62110; 62900

== ENCOUNTER 2020-03-23 14:01 | Emergency (ER) | payer OTHER ==
[~2020-03-23] VITALS: Ht 177.8 cm; Wt 122.5 kg
[2020-03-23 14:01] VITALS: BP 169/76
--- NOTE | 2020-03-23 15:20 | NUR ---
ATTEMPTED X 1 FOR IV AND BLOOD UNSUCESSFUL
[2020-03-23 16:44] LABS: ALBUMIN 3.3 g/dL (3.4-5.0); CALCIUM 8.2 mg/dL (8.5-10.1); CREATININE 14.3 mg/dL (0.7-1.3); TOTAL BILIRUBIN 0.4 mg/dL (0.2-1.0); TOTAL PROTEIN 8.6 g/dL (6.4-8.2)
[2020-03-23 16:47] LABS: BASOPHILS 0.8 % (0.0-2.0); HEMATOCRIT 32.4 % (42.0-52.0); HEMOGLOBIN 10.5 gm/dL (14.0-18.0); LYMPHOCYTES 19.6 % (24.0-44.0); MCH 29.4 pg (26.0-34.0); MCHC 32.3 g/dL (28.0-37.0); MCV 91.1 fL (80.0-100.0); MONOCYTES 10.5 % (1.0-8.0); PLATELET COUNT 229 thou/uL (150-400); POLYS 67.1 % (36.0-66.0); RBC 3.56 mil/uL (4.50-6.00); RDW 16.5 % (10.5-14.5); WBC 10.5 thou/uL (4.0-11.0)
[2020-03-23 16:48] LABS: POTASSIUM 7.4 mmol/L (3.5-5.1)
[2020-03-23 17:39] LABS: URINE BILIRUBIN NEGATIVE (Negative); URINE BLOOD TRACE (Negative); URINE CLARITY CLEAR; URINE COLOR YELLOW; URINE GLUCOSE-RANDOM* 1+ (Negative); URINE KETONES NEGATIVE (Negative); URINE LEUKOCYTES-REFLEX NEGATIVE (Negative); URINE NITRITE-REFLEX NEGATIVE (Negative); URINE PROTEIN (DIPSTICK) 3+ (Negative); URINE UROBILINOGEN 0.2 E.U./dl (0.2-1.0)
[2020-03-23 17:45] LABS: SQUAMOUS 0-3 Few /LPF (0-3)
[2020-03-23 17:46] LABS: CASTS None Seen /LPF (None Seen); URINE WBC-REFLEX 0-5 Rare /HPF (0-5)
[2020-03-23 17:47] LABS: BACTERIA-REFLEX None Seen /HPF (None Seen); CRYSTALS None Seen /LPF (None Seen); URINE RBC 3-10 Few /HPF (0-2)
[2020-03-23 17:53] VITALS: BP 177/81
[2020-03-23] MEDS ORDERED: TADALAFIL10 MG PO (18:24)
[2020-03-23] MEDS ORDERED: HYDRALAZINE 2525 M1 PO (18:31)
[2020-03-23] MEDS ORDERED: ZOCOR 20 MG TAB20 M1 PO (18:31)
[2020-03-23] MEDS ORDERED: FUROSEMIDE 80 M80 M1 PO (18:49)
[2020-03-23 19:14] VITALS: BP 133/88
[2020-03-23 20:00] VITALS: BP 110/78
[2020-03-23 21:00] VITALS: BP 145/78
[2020-03-24 00:59] VITALS: BP 165/83
[2020-03-24 02:19] VITALS: BP 150/74
[2020-03-24 03:00] VITALS: BP 160/58
[2020-03-24 03:30] LABS: CALCIUM 8.8 mg/dL (8.5-10.1)
[2020-03-24 03:34] LABS: POTASSIUM 4.9 mmol/L (3.5-5.1)
[2020-03-24 03:35] LABS: CREATININE 8.5 mg/dL (0.7-1.3)
[2020-03-24 03:36] LABS: TOTAL BILIRUBIN 0.4 mg/dL (0.2-1.0); TOTAL PROTEIN 8.2 g/dL (6.4-8.2)
[2020-03-24 05:20] VITALS: BP 143/76
[2020-03-24 06:49] VITALS: BP 143/76
--- NOTE | 2020-03-24 07:17 | EKG ---
[address] [employer] [place] [address] ELECTROCARDIOGRAM REPORT Name: MATTHEW NELSON Room #: 170-21 ADM IN M.R.#: [id number] Admission: 03/23/20 Attend Phys: Datne Wallace Discharge: Date of : 66 Report #: [id number] [facility] ED Test Date: 2020-03-23 Test Time: 17:07:27 Pat Name: MATTHEW NELSON Department: Room: 170 Gender: M Catering Assistant: JULIO : 1970 Requested By: Alec Felix Order Number: [id number] MD: Randy Matthews Measurements Intervals [place] Rate: 83 P: 37 DC: 252 QRS: -13 QRSD: 106 T: 78 QT: 401 QTc: 472 Interpretive Statements Sinus rhythm Prolonged DC interval Anterior infarct, old Compared to ECG 02/06/2020 09:17:36 Myocardial infarct finding now present Electronically Signed On 03-24-2020 7:17:35 INTERVIEWING CLERK by Randy Matthews [email or web address] <ELECTRONICALLY SIGNED> By: Randy Matthews MD, [facility] 03/24/20 0717 D: [id number] 06 Randy Matthews MD, FACC /EPI
[2020-03-24 10:39] VITALS: BP 142/74
[2020-03-25 16:06] LABS: HEP B SURFACE Ab(ANTI-HBS Reactive (()); HEPATITIS B SURFACE AG Negative (Negative)
== END 2020-03-24 05:15 | disposition still patient (30) ==
LOC: ER 14:01 → EROBS 18:09 → ER 03-24 05:15
PROVIDERS: Emergency Medicine; Hospitalist
DX: E11.22 Type 2 diabetes mellitus with diabetic chronic kidney disease (principal); I12.0 Hypertensive chronic kidney disease with stage 5 chronic kidney disease or end stage renal disease; N18.6 End stage renal disease; E87.5 Hyperkalemia; R42 Dizziness and giddiness; R06.02 Shortness of breath; R00.2 Palpitations; E78.00 Pure hypercholesterolemia, unspecified; Z99.2 Dependence on renal dialysis; Z98.890 Other specified postprocedural states; Z79.899 Other long term (current) drug therapy
CPT/HCPCS: 32100

== ENCOUNTER 2021-03-05 04:24 | Emergency (ER) | payer OTHER ==
[~2021-03-05] VITALS: Ht 177.8 cm; Wt 126.1 kg
[~2021-03-05 04:24] MED LIST changes: +FUROSEMIDE 80 M80 M1 PO; +HYDRALAZINE 2525 M1 PO; +TADALAFIL10 MG PO; +ZOCOR 20 MG TAB20 M1 PO
[2021-03-05] MEDS ORDERED: CARVEDILOL12.5 MG PO (04:41)
[2021-03-05 05:17] LABS: BASOPHILS 0.8 % (0.0-2.0); EOSINOPHILS 3.1 % (0.0-3.0); HEMATOCRIT 32.7 % (42.0-52.0); HEMOGLOBIN 10.4 gm/dL (14.0-18.0); LYMPHOCYTES 19.3 % (24.0-44.0); MCH 29.1 pg (26.0-34.0); MCHC 31.7 g/dL (28.0-37.0); MCV 91.8 fL (80.0-100.0); MONOCYTES 15.5 % (1.0-8.0); PLATELET COUNT 142 thou/uL (150-400); POLYS 61.3 % (36.0-66.0); RBC 3.56 mil/uL (4.50-6.00); RDW 18.1 % (10.5-14.5); WBC 8.1 thou/uL (4.0-11.0)
[2021-03-05 05:23] LABS: CALCIUM 8.6 mg/dL (8.5-10.1); CREATININE 13.6 mg/dL (0.7-1.3)
[2021-03-05 05:33] LABS: ALBUMIN 3.2 g/dL (3.4-5.0); TOTAL BILIRUBIN 0.4 mg/dL (0.2-1.0); TOTAL PROTEIN 7.9 g/dL (6.4-8.2)
[2021-03-05] MEDS ORDERED: PROMETH-CODEIN 65 ML PO (05:37)
[2021-03-05] MEDS ORDERED: AZITHROMYCIN 2250 MG PO (05:38)
[2021-03-05 06:28] VITALS: BP 184/101
--- NOTE | 2021-03-05 08:54 | EKG ---
[place] [address] [employer] [place] [address] ELECTROCARDIOGRAM REPORT Name: MATTHEW NELSON Room #: DEP [facility]#: [id number] Admission: 03/05/21 Attend Phys: Discharge: 03/05/21 Date of : 66 Report #: [id number] [facility] ED Test Date: 2021-03-05 Test Time: 04:51:19 Pat Name: MATTHEW NELSON Department: Room: Gender: M A P Mechanic: RETA : 1970 Requested By: Moe Resendez Order Number: [id number] MD: Raul Cuello Measurements Intervals [place] Rate: 84 P: [place]: QRS: 14 QRSD: 112 T: QT: 370 QTc: 438 Interpretive Statements Atrial fibrillation Poor septal R wave progression Artifact in lead(s) II,aVR,aVL,aVF Compared to ECG 03/23/2020 17:07:27 Atrial fibrillation has replaced sinus rhythm Electronically Signed On 03-05-2021 8:54:17 DIRECTOR ENTER[employer]ISE DATA ARCHITECTURE by Raul Cuello [email or web address] <ELECTRONICALLY SIGNED> By: Raul Cuello MD, [facility] 03/05/21 0854 045 0 Raul Cuello MD, [facility] /EPI
[2021-03-06] MEDS ORDERED: PROMETH-CODEIN 65 ML PO (08:58)
== END 2021-03-05 05:45 | disposition home or self-care (01) ==
LOC: ER 04:24
PROVIDERS: Emergency Medicine
DX: I12.0 Hypertensive chronic kidney disease with stage 5 chronic kidney disease or end stage renal disease (principal); Z20.822 Contact with and (suspected) exposure to COVID-19; E11.22 Type 2 diabetes mellitus with diabetic chronic kidney disease; N18.6 End stage renal disease; J20.9 Acute bronchitis, unspecified; E87.5 Hyperkalemia; E78.00 Pure hypercholesterolemia, unspecified; Z99.2 Dependence on renal dialysis; Z98.890 Other specified postprocedural states; Z79.891 Long term (current) use of opiate analgesic; Z79.899 Other long term (current) drug therapy

== ENCOUNTER 2021-03-14 03:45 | Emergency (ER) | payer OTHER ==
[~2021-03-14] VITALS: Ht 177.8 cm; Wt 123.4 kg
[~2021-03-14 03:45] MED LIST changes: +AZITHROMYCIN 2250 MG PO; +CARVEDILOL12.5 MG PO; +PROMETH-CODEIN 65 ML PO
[2021-03-14 04:40] LABS: ABSOLUTE NEUTROPHILS 4.4 thou/uL (1.4-8.2); BASOPHILS 0.7 % (0.0-2.0); EOSINOPHILS 4.5 % (0.0-3.0); HEMATOCRIT 36.5 % (42.0-52.0); HEMOGLOBIN 11.9 gm/dL (14.0-18.0); LYMPHOCYTES 25.7 % (24.0-44.0); MCH 29.3 pg (26.0-34.0); MCHC 32.5 g/dL (28.0-37.0); MCV 90.2 fL (80.0-100.0); MONOCYTES 13.5 % (1.0-8.0); PLATELET COUNT 186 thou/uL (150-400); POLYS 55.6 % (36.0-66.0); RBC 4.05 mil/uL (4.50-6.00); RDW 16.7 % (10.5-14.5); WBC 7.8 thou/uL (4.0-11.0)
[2021-03-14 04:45] LABS: CALCIUM 9.1 mg/dL (8.5-10.1); CREATININE 9.5 mg/dL (0.7-1.3); POTASSIUM 5.2 mmol/L (3.5-5.1)
[2021-03-14] MEDS ORDERED: CATAPRES0.2 MG PO (05:08)
[2021-03-14 06:07] VITALS: BP 185/83
--- NOTE | 2021-03-14 10:52 | EKG ---
[address] [place] [address] ELECTROCARDIOGRAM REPORT Name: MATTHEW NELSON Room #: REG [facility]#: [id number] Admission: 03/14/21 Attend Phys: Discharge: Date of : 66 Report #: [id number] [facility] ED Test Date: 2021-03-14 Test Time: 04:07:30 Pat Name: MATTHEW NELSON Department: Room: Gender: M Professor Of Early Childhood Education: jorge alberto : 1970 Requested By: Rex Lion Order Number: [id number] MD: Sam Rivas Measurements Intervals [place] Rate: 70 P: NM: QRS: 5 QRSD: 107 T: 129 QT: 446 QTc: 482 Interpretive Statements Sinus rhythm anterior infarct, old Nonspecific T abnormalities, lateral leads Compared to ECG 03/05/2021 04:51:19 Myocardial infarct finding now present T-wave abnormality now present Atrial fibrillation no longer present Electronically Signed On 03-14-2021 10:52:31 CIAIO LUMITE INJECTOR by Sam Rivas [email or web address] <ELECTRONICALLY SIGNED> By: Sam Rivas MD 03/14/21 1052 0407 0407 MD AMBER Christian
== END 2021-03-14 06:07 | disposition home or self-care (01) ==
LOC: ER 03:45
PROVIDERS: Emergency Medicine
DX: N18.6 End stage renal disease (principal); E78.00 Pure hypercholesterolemia, unspecified; G47.30 Sleep apnea, unspecified; E11.22 Type 2 diabetes mellitus with diabetic chronic kidney disease; I12.0 Hypertensive chronic kidney disease with stage 5 chronic kidney disease or end stage renal disease; Z79.899 Other long term (current) drug therapy